=== PATIENT | female | born 1970 | race Hispanic/Latino ===

== ENCOUNTER → 2019-08-13 | Outpatient (CLI) | payer BC, OTHER | END | disposition home or self-care (01) | LOC: RAH 09:59 | PROVIDERS: ATTEND Internal Medicine | DX: K76.0 Fatty (change of) liver, not elsewhere classified (principal); K57.30 Diverticulosis of large intestine without perforation or abscess without bleeding; N02.9 Recurrent and persistent hematuria with unspecified morphologic changes; K80.20 Calculus of gallbladder without cholecystitis without obstruction; K63.89 Other specified diseases of intestine; N32.89 Other specified disorders of bladder; I70.0 Atherosclerosis of aorta; M47.815 Spondylosis without myelopathy or radiculopathy, thoracolumbar region | CPT/HCPCS: 74176 ==